=== PATIENT | female | born 1965 | race Caucasian/White ===

== ENCOUNTER 2017-01-06 10:06 | Emergency (ER) | payer OTHER ==
[2017-01-06 10:16] VITALS: RESP 16; O2SAT 92
--- NOTE | 2017-01-06 10:23 | EDPHY ---
H & P Time Seen by Provider: 01/06/17 10:22 HPI/ROS: CHIEF COMPLAINT: Chest pain HISTORY OF PRESENT ILLNESS: Patient started having symptoms on Friday 2 days ago. She felt like there is a "vice study coordinator" on her left chest as well as some shortness of breath. This all started which came out of the shower after riding her lip tickle associate trainer. It radiated to her left jaw or left arm and felt heavy like an ache. It resolved and then reoccurred on Friday and then again today. Today the pain is described as sharp and left-sided with same radiation. She has increasing fatigue and describes having slept more hours than normal over the last 2 days. REVIEW OF SYSTEMS: Eye: no change in vision ENT: no sore throat Cardiac: HPI Pulmonary: no cough or SOB Abdomen: no vomiting, diarrhea, abdominal pain Musculoskeletal: no back pain, chronic bilateral arm pain unchanged Skin: no rash Neuro: no headache Constitutional: no fever : no urinary symptoms Increasing fatigue over the last 2 days sleeping from 4:00 p.m. to the morning last night. A comprehensive 10 point review of systems is otherwise negative aside from elements mentioned in the history of present illness. PAST MEDICAL HISTORY: Chronic bilateral arm pain with nerve stimulator, negative for diabetes or hypertension. Family history negative for premature coronary disease or DVT. Cholesterol 216. Social history: Nonsmoker General Appearance: Alert and conversant, cooperative. Eyes: No scleral icterus. ENT, Mouth: Normal mucous membranes. Respiratory: Normal respiratory effort, breath sounds equal, lungs are clear to auscultation. Cardiovascular: Regular rate and rhythm. Normal bilateral radial pulses. Gastrointestinal: Abdomen is soft and non tender. Neurological: Alert and oriented x3. Normally conversant. Face symmetric, normal movement and sensation in all extremities. Skin: Warm and dry, no rashes. Musculoskeletal: No peripheral edema and no joint swelling. Psychiatric: Not agitated. Emergency Department course/MDM: Results discussed at 11:45 a.m., plan treadmill stress testing; discussed with Hilary Hodge for cardiology. The patient's symptoms would be concerning for acute coronary syndrome but she has a normal EKG and normal troponin at this time. I think her symptoms would be unlikely to represent pneumonia or pulmonary embolism or aortic dissection. Negative stress test per Hilary at 11:59 a.m.. 1315: Results discussed, symptomatic treatment, primary care follow-up. Smoking Status: Never smoked Constitutional: Initial Vital Signs Temperature (C) 36.7 C 01/06/17 10:13 Heart Rate 77 01/06/17 10:13 Respiratory Rate 16 01/06/17 10:13 Blood Pressure 114/59 L 01/06/17 10:13 O2 Sat (%) 92 01/06/17 10:13 O2 Delivery Mode Room Air Allergies/Adverse Reactions: pregabalin [Pregabalin] Allergy (Intermediate, Verified 01/06/17 10:12) cephalexin monohydrate [From Keflex] Allergy (Verified 01/06/17 10:12) duloxetine HCl [From Cymbalta] Allergy (Verified 01/06/17 10:12) escitalopram oxalate [From Lexapro] Allergy (Verified 01/06/17 10:12) Home Medications: Medication Instructions Recorded Cymbalta 60 mg PO BID 12/12/13 GABAPENTIN 600 mg PO BID 12/12/13 OXYCODONE HCL/ACETAMINOPHEN 10 mg PO QID 12/12/13 Lyothronine 10 mg PO DAILY 08/16/16 Progesterone 400 mg PO HS 08/16/16 TESTOSTERONE 08/16/16 Medical Decision Making - Diagnostics EKG Interpretation: 12-lead EKG interpreted by me; official reading is in trace master. My interpretation is sinus rhythm rate 68 and no ischemic changes. Imaging Results: Imaging Impressions Chest X-Ray 01/06/17 10:37 Impression: Clear lungs. No acute process. Imaging: I viewed and interpreted images myself Differential Diagnosis: Differential diagnosis considered for chest pain including but not limited to myocardial ischemia, aortic dissection, pericarditis, pulmonary embolus, chest wall pain, pleural inflammation and pulmonary infectious causes. - Data Points Laboratory Results: Laboratory Results 01/06/17 10:20 01/06/17 10:20 01/06/17 01/06/17 10:20 10:20 WBC 6.97 10^3/uL 10^3/uL (3.80-9.50) RBC 4.69 10^6/uL 10^6/uL (4.18-5.33) Hgb 14.6 g/dL g/dL (12.6-16.3) Hct 44.1 % % (38.0-47.0) MCV 94.0 fL fL (81.5-99.8) MCH 31.1 pg pg (27.9-34.1) MCHC 33.1 g/dL g/dL (32.4-36.7) RDW 12.6 % % (11.5-15.2) Plt Count 304 10^3/uL 10^3/uL (150-400) MPV 9.5 fL fL (8.7-11.7) Neut % (Auto) 50.7 % % (39.3-74.2) Lymph % (Auto) 38.5 % % (15.0-45.0) [place] % (Auto) 7.7 % % (4.5-13.0) Eos % (Auto) 1.7 % % (0.6-7.6) Baso % (Auto) 1.1 % % (0.3-1.7) Nucleat RBC Rel Count 0.0 % % (0.0-0.2) Absolute Neuts (auto) 3.53 10^3/uL 10^3/uL (1.70-6.50) Absolute Lymphs (auto) 2.68 10^3/uL 10^3/uL (1.00-3.00) Absolute Monos (auto) 0.54 10^3/uL 10^3/uL (0.30-0.80) Absolute Eos (auto) 0.12 10^3/uL 10^3/uL (0.03-0.40) Absolute Basos (auto) 0.08 10^3/uL 10^3/uL (0.02-0.10) Absolute Nucleated RBC 0.00 10^3/uL 10^3/uL (0-0.01) Immature Gran % 0.3 % % (0.0-1.1) Immature Gran # 0.02 10^3/uL 10^3/uL (0.00-0.10) Sodium 139 mEq/L mEq/L (134-144) Potassium 4.5 mEq/L mEq/L (3.5-5.2) Chloride 102 mEq/L mEq/L (97-110) Carbon Dioxide 29 mEq/l mEq/l (22-31) Anion Gap 8 mEq/L mEq/L (8-16) BUN 21 mg/dL mg/dL (7-23) Creatinine 1.0 mg/dL mg/dL (0.6-1.0) Estimated GFR 58 Glucose 94 mg/dL mg/dL (70-100) Calcium 9.5 mg/dL mg/dL (8.5-10.4) Troponin I < 0.012 ng/mL ng/mL (0-0.034) Medications Given: Discontinued Medications Aspirin (Aspirin) 324 mg PO EDNOW ONE Stop: 01/06/17 10:37 Last Admin: 01/06/17 11:10 Dose: 324 mg Departure - Departure Disposition: Home, Routine, Self-Care Clinical Impression: Chest pain Qualifiers: Chest pain type: unspecified Qualified Code(s): R07.9 - Chest pain, unspecified Condition: Good Instructions: Chest Pain (ED) Additional Instructions: Negative stress test today. Please follow-up with your primary care provider in the next 2 days if not improving. Referrals: Erma Jones MD [Primary Care Provider] - As per Instructions
--- NOTE | 2017-01-06 10:24 | CPEKG ---
Heart Rate: 68 RR Interval: 882 P-R Interval: 156 QRSD Interval: 72 QT Interval: 420 QTC Interval: 447 P [place]: 53 QRS [place]: 53 T Wave [place]: 37 EKG Severity - NORMAL ECG - EKG Impression: SINUS RHYTHM Electronically Signed By: Fco Albarado 06-Jan-2017 12:48:48
[2017-01-06] MEDS ORDERED: NITROGLYCERIN 0.4 MG BTL SL PRN (10:36)
[2017-01-06] MEDS ORDERED: ASPIRIN 81 MG CHEWABLE TAB PO ONE (10:36)
[2017-01-06 10:41] LABS: % IMMATURE GRANULYOCYTES 0.3 % (0.0-1.1); ABSOLUTE IMMATURE GRANULOCYTES 0.02 10^3/uL (0.00-0.10); ADD DIFF? NO; ADD MORPH? NO; ADD SCAN? NO; ATYPICAL LYMPHOCYTE FLAG 0 (0-99); FRAGMENT RBC FLAG 0 (0-99); HEMATOCRIT 44.1 % (38.0-47.0); HEMOGLOBIN 14.6 g/dL (12.6-16.3); LEFT SHIFT FLG 0 (0-99); LIPEMIA HEMOLYSIS FLAG 80 (0-99); MEAN CELL HEMOGLOBIN 31.1 pg (27.9-34.1); MEAN CELL HEMOGLOBIN CONCENTR. 33.1 g/dL (32.4-36.7); MEAN PLATELET VOLUME 9.5 fL (8.7-11.7); PLATELET CLUMPS FLAG 0 (0-99); PLATELET COUNT 304 10^3/uL (150-400); RED BLOOD CELL COUNT 4.69 10^6/uL (4.18-5.33); RED CELL DISTRIBUTION WIDTH 12.6 % (11.5-15.2)
[2017-01-06 10:48] LABS: ANION GAP 8 mEq/L (8-16); CALCIUM 9.5 mg/dL (8.5-10.4); CARBON DIOXIDE 29 mEq/l (22-31); CHLORIDE 102 mEq/L (97-110); GLOMERULAR FILTRATION RATE 58; GLUCOSE 94 mg/dL (70-100); POTASSIUM 4.5 mEq/L (3.5-5.2); SODIUM 139 mEq/L (134-144)
[2017-01-06 10:59] LABS: TROPONIN I < 0.012 ng/mL (0-0.034)
--- NOTE | 2017-01-06 13:01 | PDCONSULT ---
Machine Long Goods Helper Note: TM stress test Indication: chest pain Description of procedure: After informed consent was obtained, pt was established to ECG, oximetry, oximetry, HR, and BP monitoring. At b/l, pt is in SR with BP 104/78, HR 73, and oximetry wnl. Pt exercised for a total of 9 minutes on the Krzysztof protocol stress test. There were no ischemic changes noted. Peak BP was 128/76. Pt achieved HR of 154 bpm which is 92% of MPHR based on age. Pt had intermittent chest stabbing at peak exercise lasting seconds. There were no arrhythmias throughout stress test. Impression: Normal ECG response. Atypical CP. DTS: +5 (low risk).
[2017-01-06 13:29] VITALS: BP 114/71; PULSE 69; TEMP 98.4
== END 2017-01-06 13:31 | disposition home or self-care (01) ==
DX: R07.9 Chest pain, unspecified (principal)

== ENCOUNTER → 2017-08-29 | Outpatient (CLI) | payer OTHER | LOC: FIMAGING 12:23 | PROVIDERS: ATTEND Internal Medicine | DX: Z12.31 Encounter for screening mammogram for malignant neoplasm of breast (principal) | CPT/HCPCS: G0202 ==

== ENCOUNTER → 2018-04-16 | Outpatient (CLI) | payer OTHER | LOC: FIMAGING 18:37 | DX: R51 Headache (principal) ==

== ENCOUNTER → 2018-09-24 | Outpatient (CLI) | payer OTHER | LOC: FIMAGING 08:22 | PROVIDERS: ATTEND Internal Medicine | DX: Z12.31 Encounter for screening mammogram for malignant neoplasm of breast (principal) ==

== ENCOUNTER 2018-10-18 16:12 | Emergency (ER) | payer OTHER ==
--- NOTE | 2018-10-18 16:23 | EDPHY ---
H & P Stated Complaint: R eye sty, difficulty swallowing, pain beneath R breast Time Seen by Provider: 10/18/18 16:20 HPI/ROS: CHIEF COMPLAINT: Right eye stye, right ear pain, difficulty swallowing HISTORY OF PRESENT ILLNESS: The patient is a 52 y/o female with a history of chronic pain and multiple surgeries who arrives with her complaining of right-sided facial pain, headache, and difficulty swallowing onset this morning. She noticed right upper eyelid redness last night similar to recent stye symptoms in her left eye. She took some of the remaining Polytrim eye drops she had available and went to bed. This morning the redness had progressed and she now has an associated painful "nodule" under her right ear, right ear pain, right-sided headache, and pain underneath her breast along her right anterior ribs. She also describes difficulty swallowing solid food today. Food feels like it gets caught and causes gagging. She describes a "numb and tight" sensation in her throat. She has been able to swallow liquids and saliva without issue. She has no prior history of difficulty swallowing or GERD. No known hiatal hernia. This is not associated with a sore throat. She also feels like her breathing is "tight." She is not coughing, but feels like she has the urge to cough. She mentions she is recovering from a cold during which she was treated with Medrol, albuterol, and a z-pack. No recent trauma. No left chest pain. REVIEW OF SYSTEMS: A ten system review of systems was performed and is negative with the exception of the items mentioned in the HPI. Past medical history: 1. Chronic pain/chronic regional pain syndrome/neuropathic pain (oxycodone, duloxetine) 2. Migraines 3. Cervical dystonia (Zanaflex) 4. Degenerative disc disease Past surgical history: 1. Hip surgeries x2 2. Spinal cord stimulators (lumbar and cervical) 3. Thoracic outlet surgeries 4. Cervical fusion Family history: Noncontributory Social history: Nonsmoker. No alcohol. Not employed. at bedside. Pain doctor: Dr. Christian and Dr. Jugde. PCP: Dr. Jones Prior medical records reviewed including rehab note 07/07/17. General Appearance: Alert. Vital signs reviewed. Blood pressure 139/86. Eyes: Pupils equal and round, no conjunctival injection, no discharge. Anicteric. ENT, Mouth: Right eye stye. Right TM obscured by cerumen. Left TM clear. Mucous membranes are moist, no oropharyngeal erythema or edema. Dentition nontender to percussion. Gingiva normal. Neck: One tender node under angle of jaw on the right. Trachea midline. Supple. No carotid bruit. Respiratory: Lungs are clear to auscultation; no wheezes, rales, or rhonchi. Chest: Right 6th rib tenderness underneath breast. No skin changes. Cardiovascular: Regular rate and rhythm; no murmur, rub, or gallop. Gastrointestinal: Abdomen is soft and nontender, no masses or organomegaly. Skin: Warm and dry, no rashes on exposed skin, normal color. Back: Nontender to palpation over the thoracolumbar spine. No CVAT. Extremities: No lower extremity edema, no calf tenderness or swelling. Neurological: Alert and oriented. Moving all four extremities easily and equally. PERRL. EOMI. Facial expressions symmetric. Tongue midline. Facial sensation intact to LT. SCM 5/5. Psychiatric: Normal affect. - Personal History Current Tetanus/Diphtheria Vaccine: Yes Current Tetanus Diphtheria and Acellular Pertussis (TDAP): Yes - Medical/Surgical History Hx Asthma: No Hx Chronic Respiratory Disease: No Hx Diabetes: No Hx Cardiac Disease: No Hx Renal Disease: No Hx Cirrhosis: No Hx Alcoholism: No Hx HIV/AIDS: No Hx Splenectomy or Spleen Trauma: No Other PMH: CHRONIC PAIN, ANXIETY, multiple orthopedic procedures,spinal cord stimulator - Social History Smoking Status: Never smoked Constitutional: Initial Vital Signs Temperature (C) 36.9 C 10/18/18 16:17 Heart Rate 91 10/18/18 16:17 Respiratory Rate 16 10/18/18 16:17 Blood Pressure 139/86 H 10/18/18 16:17 O2 Sat (%) 96 10/18/18 16:17 O2 Delivery Mode Room Air Allergies/Adverse Reactions: pregabalin [Pregabalin] Allergy (Intermediate, Verified 10/18/18 16:15) cephalexin monohydrate [From Keflex] Allergy (Verified 10/18/18 16:15) escitalopram oxalate [From Lexapro] Allergy (Verified 10/18/18 16:15) Home Medications: Medication Instructions Recorded Cymbalta 60 mg PO BID 12/12/13 OXYCODONE HCL/ACETAMINOPHEN 10 mg PO QID 12/12/13 Lyothronine 10 mg PO DAILY 08/16/16 Progesterone 400 mg PO HS 08/16/16 Amoxicillin/Clavulanate Pot 875 mg PO BID #14 tab 10/18/18 [Augmentin 875 MG TAB (*)] Estradiol 10/18/18 Gralise 10/18/18 Medical Decision Making - Diagnostics Imaging: Discussed imaging studies w/ bag shaker Radiologist, I viewed and interpreted images myself ED Course/Re-evaluation: This is a 52 y/o female who presents with right facial pain, right chest pain, and difficulty swallowing. She has a right eye stye, one tender lymph node under the angle of her jaw on the right, and right anterior rib tenderness underneath her breast. The facial symptoms seem more consistent with infectious etiology. Her chest pain is reproducible and seems musculoskeletal in nature. Plan for IV, labs, chest x-ray, neck CT. Patient declines pain medication. Neck CT to evaluate for airway compromise, retropharyngeal abscess, epiglottitis, other potentially life threatening process. Chest x-ray: nothing acute 1741: Reevaluated patient and discussed findings. She says lying down for the scanner she had pain on the right side of her chest underneath her breast and now along her upper right ribcage. She denies recent long travel or extended sedentary periods. She is on estrogen and progesterone hormone replacement therapy. She denies personal or family history of blood clots. Discussed utility of measuring a d-dimer and she would like to proceed with this. D dimer WNL. Neck CT: bilateral maxillary sinusitis, otherwise unremarkable. Reassessed patient and discussed findings. I've not found a clear cause that explains all of her symptoms. The sinusitis may explain the facial symptoms. Assuming that this is the case, she is relatively symptomatic and I am choosing to treat her with antibiotics. I think she will require GI follow up and possible endoscopy to look for esophageal stricture or other cause of dysphagia. She is able to drink fluids and swallow secretions at this time. I do not think that she is in danger. I do not suspect esophageal foreign body. Recommend treating her stye with the medications she already has available at home. She is comfortable with plan for discharge. Return precautions discussed. - Data Points Point of Care Test Results: Chemistry 10/18/18 17:22 POC Sodium 141 mEq/L mEq/L (135-145) POC Potassium 3.5 mEq/L mEq/L (3.3-5.0) POC Chloride 104 mEq/L mEq/L (97-110) POC Total CO2 25 mEq/L mEq/L (22-31) POC BUN 22 mg/dL mg/dL (7-23) POC Creatinine 0.9 mg/dL mg/dL (0.6-1.0) POC Glucose 85 mg/dL mg/dL (70-100) ISTAT H&H 10/18/18 17:22 POC Hgb 15.0 gm/dL gm/dL (12.6-16.3) POC Hct 44 % % (38-47) Departure - Departure Disposition: Home, Routine, Self-Care Clinical Impression: Sinusitis Qualifiers: Sinusitis location: maxillary Chronicity: acute Recurrence: recurrent Qualified Code(s): J01.01 - Acute recurrent maxillary sinusitis Stye Qualifiers: Laterality: right Eyelid: upper Qualified Code(s): H00.011 - Hordeolum externum right upper eyelid Condition: Good Instructions: Amoxicillin/Clavulanate Potassium (By mouth), Sinusitis (ED), Stye (ED) Additional Instructions: 1. Continue treatments you have at home for stye. 2. Use Augmentin as prescribed for sinusitis. Be sure to complete the entire prescription even if symptoms have resolved. 3. Follow up with gas burner operator in the next 2-3 days. When you call the office let the office staff know that you were seen in the emergency department and referred to the on-call doctor. Make sure they know that you cannot swallow. It is fine for you to see any of the physicians in the group. 4. Return to the ED for inability to swallow fluids, severe pain, difficulty breathing, or other worsening of condition. Referrals: Erma Jones MD [Primary Care Provider] - As per Instructions Humberto Harrison MD [Medical Doctor] - As per Instructions Prescriptions: Amoxicillin/Clavulanate Pot [Augmentin 875 MG TAB (*)] 875 mg PO BID #14 tab Report Scribed for: Catherine Aldana Report Scribed by: Sonal Gan Date of Report: 10/18/18 Time of Report: 16:49 Physician Review and Approval Statement: 10/18/18 16:22 Portions of this note were transcribed by the medical anthropology director. I, Dr. Catherine Aldana, personally performed the history, physical exam, and medical decision- making; and confirmed the accuracy of the information in the transcribed note.
[2018-10-18] MEDS ORDERED: IOHEXOL 300 mgI/ML (OMNIPAQUE) 150 ML BTL IV ONE (17:08)
[2018-10-18 18:24] VITALS: BP 110/84
== END 2018-10-18 18:55 | disposition home or self-care (01) ==
DX: H00.011 Hordeolum externum right upper eyelid (principal); J32.0 Chronic maxillary sinusitis; R13.10 Dysphagia, unspecified; F41.9 Anxiety disorder, unspecified; G89.29 Other chronic pain
CPT/HCPCS: 82435-PO; 82565-PO; 82947-PO; 84132-PO; 84295-PO; 84520-PO; 85014-ER; Q9967

== ENCOUNTER → 2018-10-28 | Outpatient (CLI) | payer OTHER | LOC: FIMAGING 13:31 | PROVIDERS: ATTEND Orthopaedic Surgery Foot and Ankle Surgery | DX: M89.8X7 Other specified disorders of bone, ankle and foot (principal); M25.475 Effusion, left foot; M25.872 Other specified joint disorders, left ankle and foot ==